=== PATIENT | male | born 1935 | race Caucasian/White ===

== ENCOUNTER 2019-03-18 20:00 | Inpatient (IN) | payer OTHER ==
[~2019-03-18] VITALS: Ht 175.3 cm; Wt 107.0 kg
[2019-03-18 21:24] LABS: BASOPHIL % 0.2 % (0-2); PLATELET COUNT 131 x10^3mcL (130-400); RED CELL DISTRIBUTION WIDTH 17.3 % (11.5-14.5)
[2019-03-18 21:49] LABS: CARBON DIOXIDE 26.5 mmol/L (21-32); CHLORIDE SERUM 106 mmol/L (98-107); CREATININE SERUM 1.4 mg/dL (0.7-1.3); GLUCOSE SERUM 129 mg/dL (74-106); POTASSIUM SERUM 4.2 mmol/L (3.5-5.1); SODIUM SERUM 141 mmol/L (136-145)
[2019-03-18 21:50] LABS: ALBUMIN 3.1 g/dL (3.4-5.0); ALKALINE PHOSPHATASE 466 U/L (46-116); ALT/SGPT 246 U/L (16-63); AMYLASE 36 U/L (25-115); AST/SGOT 137 U/L (15-37); BILIRUBIN TOTAL 3.4 mg/dL (0.20-1.00); CALCIUM 8.7 mg/dL (8.5-10.1); LIPASE 145 IU/L (73-393); TOTAL PROTEIN, SERUM 7.5 g/dL (6.4-8.2)
[2019-03-18 23:49] LABS: CHOLESTEROL/HDL RATIO 3.7
[2019-03-19] VITALS (8 sets, daily range): BP systolic 94–133; BP diastolic 41–76; Ht 175.3 cm; Wt 107.0 kg
[2019-03-19] MEDS ORDERED: MONTELUKAST SOD10 M1 PO (00:08)
[2019-03-19] MEDS ORDERED: ATORVASTATIN CA80 M1 PO (00:09)
[2019-03-19] MEDS ORDERED: COU2.5 PO (00:10)
[2019-03-19] MEDS ORDERED: CARVEDILOL ER40 MG PO (00:11)
[2019-03-19] MEDS ORDERED: FINASTERIDE1 MG PO (00:11)
[2019-03-19] MEDS ORDERED: TAMSULOSIN HCL0.4 MG PO (00:12)
[2019-03-19] MEDS ORDERED: LOSARTAN POTASS25 M1 PO (00:13)
[2019-03-19] MEDS ORDERED: LASIX40 MG PO (00:15)
[2019-03-19 07:30] LABS: CALCIUM 7.9 mg/dL (8.5-10.1); CARBON DIOXIDE 25.3 mmol/L (21-32); CHLORIDE SERUM 112 mmol/L (98-107); CREATININE SERUM 1.5 mg/dL (0.7-1.3); GLUCOSE SERUM 95 mg/dL (74-106); MAGNESIUM 2.3 mg/dL (1.8-2.4); PHOSPHOROUS 4.4 mg/dL (2.5-4.9); POTASSIUM SERUM 4.3 mmol/L (3.5-5.1); SODIUM SERUM 144 mmol/L (136-145)
[2019-03-19 09:37] LABS: PLATELET COUNT 97 x10^3mcL (130-400); RED CELL DISTRIBUTION WIDTH 17.2 % (11.5-14.5)
[2019-03-19 11:18] LABS: SEGMENTED NEUTROPHILS 95 % (37-75)
[2019-03-19 11:24] LABS: BAND NEUTROPHIL 3 % (0-10)
[2019-03-19 11:29] LABS: MONOCYTE 1 % (0-7)
[2019-03-19 12:28] LABS: microscopic required? YES; urine erythrocyte TRACE (NEGATIVE)
[2019-03-19 13:07] LABS: rbc morphology (normal/abnorm) NORMAL (NORMAL)
[2019-03-20 05:15] VITALS: BP 103/58
[2019-03-20 06:56] LABS: BASOPHIL % 0.1 % (0-2)
[2019-03-20 07:05] LABS: PLATELET COUNT 83 x10^3mcL (130-400); RED CELL DISTRIBUTION WIDTH 17.5 % (11.5-14.5)
[2019-03-20 07:11] LABS: CARBON DIOXIDE 28 mmol/L (21-32); CHLORIDE SERUM 109 mmol/L (98-107); GLUCOSE SERUM 87 mg/dL (74-106); POTASSIUM SERUM 4.2 mmol/L (3.5-5.1); SODIUM SERUM 144 mmol/L (136-145)
[2019-03-20 07:12] LABS: CALCIUM 7.9 mg/dL (8.5-10.1); CREATININE SERUM 1.6 mg/dL (0.7-1.3)
[2019-03-20 07:13] LABS: MAGNESIUM 2.2 mg/dL (1.8-2.4); PHOSPHOROUS 3.2 mg/dL (2.5-4.9)
[2019-03-20 08:06] VITALS: BP 100/54
[2019-03-20 12:00] VITALS: BP 114/51
[2019-03-20 13:22] LABS: ALBUMIN 2.2 g/dL (3.4-5.0); BILIRUBIN DIRECT 1.8 mg/dL (0.0-0.2); BILIRUBIN TOTAL 2.4 mg/dL (0.20-1.00); TOTAL PROTEIN, SERUM 5.7 g/dL (6.4-8.2)
[2019-03-20 16:46] VITALS: BP 114/61
[2019-03-20 21:02] VITALS: BP 100/49
[2019-03-21 06:13] VITALS: BP 98/62
[2019-03-21 07:04] LABS: BASOPHIL % 0.1 % (0-2); PLATELET COUNT 92 x10^3mcL (130-400); RED CELL DISTRIBUTION WIDTH 17.4 % (11.5-14.5)
[2019-03-21 07:26] LABS: CALCIUM 8.2 mg/dL (8.5-10.1); CARBON DIOXIDE 27.5 mmol/L (21-32); CHLORIDE SERUM 108 mmol/L (98-107); CREATININE SERUM 1.4 mg/dL (0.7-1.3); GLUCOSE SERUM 82 mg/dL (74-106); MAGNESIUM 2.3 mg/dL (1.8-2.4); PHOSPHOROUS 2.8 mg/dL (2.5-4.9); POTASSIUM SERUM 4.2 mmol/L (3.5-5.1); SODIUM SERUM 142 mmol/L (136-145)
[2019-03-21 08:18] VITALS: BP 128/69
[2019-03-21 10:13] LABS: ALBUMIN 2.2 g/dL (3.4-5.0); BILIRUBIN DIRECT 1.01 mg/dL (0.0-0.2); BILIRUBIN TOTAL 1.7 mg/dL (0.20-1.00); TOTAL PROTEIN, SERUM 6.1 g/dL (6.4-8.2)
[2019-03-21 13:16] VITALS: BP 106/55
[2019-03-21 17:16] VITALS: BP 116/59
[2019-03-22 05:06] VITALS: BP 114/64
[2019-03-22 07:03] LABS: BASOPHIL % 0.2 % (0-2)
[2019-03-22 07:11] LABS: PLATELET COUNT 102 x10^3mcL (130-400); RED CELL DISTRIBUTION WIDTH 17.2 % (11.5-14.5)
[2019-03-22 07:15] LABS: CARBON DIOXIDE 26.8 mmol/L (21-32); CHLORIDE SERUM 107 mmol/L (98-107); CREATININE SERUM 1.2 mg/dL (0.7-1.3); GLUCOSE SERUM 75 mg/dL (74-106); POTASSIUM SERUM 3.7 mmol/L (3.5-5.1); SODIUM SERUM 143 mmol/L (136-145)
[2019-03-22 08:20] VITALS: BP 111/60
[2019-03-22 13:09] VITALS: BP 113/52
[2019-03-22 17:30] VITALS: BP 122/67
[2019-03-22 21:05] VITALS: BP 111/60
[2019-03-23 05:36] VITALS: BP 114/66
[2019-03-23 06:43] LABS: BASOPHIL % 0.3 % (0-2)
[2019-03-23 07:17] LABS: PLATELET COUNT 120 x10^3mcL (130-400)
[2019-03-23 07:52] LABS: CHLORIDE SERUM 106 mmol/L (98-107); POTASSIUM SERUM 3.8 mmol/L (3.5-5.1); SODIUM SERUM 141 mmol/L (136-145)
[2019-03-23 07:53] VITALS: BP 139/74
[2019-03-23 07:53] LABS: CARBON DIOXIDE 28.9 mmol/L (21-32); GLUCOSE SERUM 82 mg/dL (74-106)
[2019-03-23 07:54] LABS: CREATININE SERUM 1.2 mg/dL (0.7-1.3)
[2019-03-23 07:55] LABS: ALBUMIN 2.2 g/dL (3.4-5.0); ALKALINE PHOSPHATASE 236 U/L (46-116); ALT/SGPT 128 U/L (16-63); AST/SGOT 71 U/L (15-37); BILIRUBIN TOTAL 0.88 mg/dL (0.20-1.00); CALCIUM 7.9 mg/dL (8.5-10.1)
[2019-03-23 11:30] VITALS: BP 116/58
[2019-03-23 13:07] VITALS: BP 105/60
[2019-03-23 17:49] VITALS: BP 107/57
[2019-03-23 19:10] VITALS: BP 105/50
[2019-03-24 06:00] VITALS: BP 119/62
[2019-03-24 08:53] VITALS: BP 104/58
[2019-03-24 12:38] LABS: BASOPHIL % 0.3 % (0-2); PLATELET COUNT 153 x10^3mcL (130-400)
[2019-03-24 12:39] LABS: RED CELL DISTRIBUTION WIDTH 16.5 % (11.5-14.5)
[2019-03-24 13:10] LABS: ALBUMIN 2.3 g/dL (3.4-5.0); BILIRUBIN DIRECT 0.5 mg/dL (0.0-0.2); BILIRUBIN TOTAL 0.81 mg/dL (0.20-1.00); TOTAL PROTEIN, SERUM 6.6 g/dL (6.4-8.2)
[2019-03-24 13:21] VITALS: BP 92/50
[2019-03-24 14:09] LABS: CALCIUM 8.2 mg/dL (8.5-10.1); CARBON DIOXIDE 24.3 mmol/L (21-32); CHLORIDE SERUM 104 mmol/L (98-107); CREATININE SERUM 1.5 mg/dL (0.7-1.3); GLUCOSE SERUM 102 mg/dL (74-106); SODIUM SERUM 139 mmol/L (136-145)
[2019-03-24 14:10] LABS: MAGNESIUM 2.2 mg/dL (1.8-2.4); PHOSPHOROUS 2.8 mg/dL (2.5-4.9)
[2019-03-24 16:28] VITALS: BP 119/62
[2019-03-24 20:00] VITALS: BP 111/63
[2019-03-25 05:26] VITALS: BP 113/65
[2019-03-25 06:41] LABS: BASOPHIL % 0.2 % (0-2); PLATELET COUNT 143 x10^3mcL (130-400)
[2019-03-25 06:56] LABS: RED CELL DISTRIBUTION WIDTH 16.5 % (11.5-14.5)
[2019-03-25 07:05] LABS: CARBON DIOXIDE 26.9 mmol/L (21-32); CHLORIDE SERUM 105 mmol/L (98-107); CREATININE SERUM 1.2 mg/dL (0.7-1.3); GLUCOSE SERUM 82 mg/dL (74-106); POTASSIUM SERUM 4.6 mmol/L (3.5-5.1); SODIUM SERUM 138 mmol/L (136-145)
[2019-03-25 07:06] LABS: ALBUMIN 2.2 g/dL (3.4-5.0); ALKALINE PHOSPHATASE 196 U/L (46-116); ALT/SGPT 153 U/L (16-63); AST/SGOT 95 U/L (15-37); BILIRUBIN DIRECT 0.48 mg/dL (0.0-0.2); BILIRUBIN TOTAL 0.9 mg/dL (0.20-1.00)
[2019-03-25 09:15] VITALS: BP 104/50
[2019-03-25 13:43] VITALS: BP 115/64
[2019-03-25 17:40] VITALS: BP 126/62
[2019-03-25 20:55] VITALS: BP 122/72
[2019-03-26 05:28] VITALS: BP 125/60
[2019-03-26 06:58] LABS: BASOPHIL % 0.2 % (0-2); PLATELET COUNT 164 x10^3mcL (130-400)
[2019-03-26 07:17] LABS: RED CELL DISTRIBUTION WIDTH 16.5 % (11.5-14.5)
[2019-03-26 07:44] LABS: CALCIUM 7.9 mg/dL (8.5-10.1); CARBON DIOXIDE 27.5 mmol/L (21-32); CHLORIDE SERUM 105 mmol/L (98-107); CREATININE SERUM 1.1 mg/dL (0.7-1.3); GLUCOSE SERUM 78 mg/dL (74-106); MAGNESIUM 2.3 mg/dL (1.8-2.4); POTASSIUM SERUM 3.9 mmol/L (3.5-5.1); SODIUM SERUM 140 mmol/L (136-145)
[2019-03-26 08:50] VITALS: BP 111/58
[2019-03-26] MEDS ORDERED: COU2.5 PO (11:55)
[2019-03-26] MEDS ORDERED: CIPRO500 MG PO (11:57)
[2019-03-26 12:23] VITALS: BP 112/57
[2019-03-26 12:45] VITALS: BP 112/57
[2019-03-26] MEDS ORDERED: TAMSULOSIN HCL0.4 MG PO (16:19)
[2019-03-26 17:00] VITALS: BP 132/74
== END 2019-03-26 18:19 | disposition home health service (06) | DRG 853 ==
LOC: ED 20:00 → MU 23:17 → DU 23:17 → MU 03-23 15:36
PROVIDERS: Emergency Medicine; Internal Medicine Gastroenterology; Student in an Organized Health Care Education/Training Program; Surgery; ADMIT Internal Medicine
PROC: 0FC98ZZ Extirpation of Matter from Common Bile Duct, Via Natural or Artificial Opening Endoscopic (ICD-10-PCS; 2019-03-19 16:00)
PROC: 0FT44ZZ Resection of Gallbladder, Percutaneous Endoscopic Approach (ICD-10-PCS; principal; 2019-03-23 09:00)
DX: A41.9 Sepsis, unspecified organism (principal); N17.0 Acute kidney failure with tubular necrosis; E44.1 Mild protein-calorie malnutrition; K80.64 Calculus of gallbladder and bile duct with chronic cholecystitis without obstruction; I48.20 Chronic atrial fibrillation, unspecified; I50.22 Chronic systolic (congestive) heart failure; K82.8 Other specified diseases of gallbladder; I25.5 Ischemic cardiomyopathy; E78.5 Hyperlipidemia, unspecified; K66.0 Peritoneal adhesions (postprocedural) (postinfection); D64.9 Anemia, unspecified; I25.10 Atherosclerotic heart disease of native coronary artery without angina pectoris; M19.90 Unspecified osteoarthritis, unspecified site; Z68.34 Body mass index [BMI] 34.0-34.9, adult; Z95.1 Presence of aortocoronary bypass graft; Z87.891 Personal history of nicotine dependence; Z79.01 Long term (current) use of anticoagulants; Z95.810 Presence of automatic (implantable) cardiac defibrillator
CPT/HCPCS: 43262; 83880; 97116-GP; 97530-GP; C1769; G0378; J0330; J0696; J1170; J1610; J1940; J2001; J2175; J2250; J2270; J2405; J2543; J2704; J3010; J3430; J3490; J7030; J7040; J7120; Q0092; Q9967